=== PATIENT | female | born 1980 | race Caucasian/White ===

== ENCOUNTER 2022-10-09 14:14 | Emergency (ER) | payer MEDICAID ==
[~2022-10-09] VITALS: Ht 152.4 cm; Wt 68.0 kg
[2022-10-09] MEDS ORDERED: LEVO-65 PO (14:23)
[2022-10-09] MEDS ORDERED: T3 PO (14:23)
[2022-10-09] MEDS ORDERED: KETOROLAC 30MG/ML VIAL IV STA (15:18)
[2022-10-09] MEDS ORDERED: SODIUM CHLORIDE 0.9% 1,000 ML IV ONE (15:30)
[2022-10-09 15:55] LABS: BASOPHILS % 0.5 % (0.0-2.0); EOSINOPHILS % 1.1 % (0.0-5.0); HEMOGLOBIN. 12.7 g/dL (12.0-16.0); LYMPHOCYTES % 27.1 % (20.0-50.0); MEAN CORPUSCULAR HEMOGLOBIN 29.9 pg (28.0-32.0); MEAN CORPUSCULAR VOLUME 89.3 fL (81.0-99.0); MEAN PLATELET VOLUME 8.2 fl (7.4-10.4); MONOCYTES % 6.2 % (2.0-8.0); NEUTROPHILS % 65.1 % (40.0-76.0); PLATELET 288 x1000/uL (130-400); RED BLOOD CELL COUNT 4.26 mill/uL (4.2-5.4); RED CELL DISTRIBUTION WIDTH 15.4 % (11.6-14.6)
[2022-10-09 16:02] LABS: CLARITY URINE CLEAR (CLEAR); COLOR URINE YELLOW (YELLOW); KETONES URINE NEGATIVE (NEGATIVE); LEUKOCYTE ESTERASE URINE 2+ (NEGATIVE); NITRITE URINE NEGATIVE (NEGATIVE); OCCULT BLOOD URINE NEGATIVE (NEGATIVE); PROTEIN URINE NEGATIVE (NEGATIVE); SPECIFIC GRAVITY URINE 1.006 (1.005-1.030); UROBILINOGEN URINE 0.2 E.U./dL (0.2-1.0)
[2022-10-09 16:07] LABS: CHLORIDE 107 mEq/L (98-107)
[2022-10-09 16:46] VITALS: BP 114/79
[2022-10-09 18:13] LABS: HCG SCREEN NEGATIVE
[2022-10-09] MEDS ORDERED: ONDANSETRON HCL 4MG/2ML INJ IV STA (18:31)
[2022-10-09] MEDS ORDERED: MORPHINE SULFATE 4 MG/ML CPJ (NOT FOR IM USE) IV STA (18:31)
[2022-10-09] MEDS ORDERED: CEFTRIAXONE 1 G PREMIX 50 ML IV ONE (18:45)
[2022-10-09] MEDS ORDERED: NITR-87 MT (19:02)
[2022-10-09] MEDS ORDERED: TRAM50TA3 MT (19:02)
[2022-10-09] MEDS ORDERED: IBUP-2029 MT (19:02)
[2022-10-09] MEDS ORDERED: IOHEXOL-350 100 ML BOTTLE ONE (19:26)
== END 2022-10-09 19:19 | disposition home or self-care (01) ==
LOC: ER 14:14
DX: R07.89 Other chest pain (principal); N39.0 Urinary tract infection, site not specified
CPT/HCPCS: 36415; 71045; 71275; 74174; 80053; 81003; 81025; 83690; 83880; 84484; 84703; 85025; 85379; 87086; 93005; 93970; 96365; 96375; 99285; J0696; J1885; J2270; J2405; J7030; Q9967